=== PATIENT | female | born 1955 ===

== ENCOUNTER → 2022-08-17 | Outpatient (CLI) | payer MEDICARE ==
[2022-08-17 20:01] LABS: Uric Acid, Blood 3.8 mg/dL (2.6-6.0)
[2022-08-17 20:03] LABS: Alanine Aminotransfer (ALT/SGP 31 U/L (12-78); Albumin, Blood 4.4 g/dL (3.4-5.0); Albumin/Globulin Ratio 1.4 (0.8-1.8); Alk Phos 24 U/L (50-136); Anion Gap 2 mmol/L (6-16); Aspartate Aminotrans (AST/SGOT 21 U/L (12-37); Bilirubin, Total 1.2 mg/dL (0.1-1.0); Blood Urea Nitrogen 13 mg/dL (8-24); Bun/Creatinine Ratio 19.3 (12.0-20.0); CO2, Blood 29 mmol/L (21-32); Calcium, Blood 9.6 mg/dL (8.5-10.1); Chloride, Blood 106 mmol/L (98-108); Cholesterol 296 mg/dL (50-200); Creatinine, Blood 0.68 mg/dL (0.40-1.00); Globulin, Blood 3.1 g/dL (2.2-4.0); Glomerular Filtration Rate 97 (60-); Glucose, Blood 104 mg/dL (70-99); HDL Cholesterol 98 mg/dL (>39); LDL/HDL RATIO 1.9; Low Density Lipoprotein Chol 188 mg/dL (0-110); Potassium, Blood 4.3 mmol/L (3.5-5.5); Sodium, Blood 137 mmol/L (136-145); Total Protein, Blood 7.5 g/dL (6.4-8.2); Triglycerides 52 mg/dL (30-160); Very Low Density Lipoprot Chol 10 mg/dL (6-32)
== END | disposition home or self-care (01) ==
LOC: LAB 18:17 → LAB SHORT 18:17
PROVIDERS: Family Medicine
DX: E78.5 Hyperlipidemia, unspecified (principal); Z79.899 Other long term (current) drug therapy
CPT/HCPCS: 80053; 80061; 84550

== ENCOUNTER → 2023-12-14 | Outpatient (CLI) | payer MEDICARE ==
[2023-12-14 20:06] LABS: BASOPHILS ABSOLUTE AUTO 0.03 K/mm3 (0.00-0.23); BASOPHILS PERCENT AUTO 1 % (0-2); EOSINOPHILS ABSOLUTE AUTO 0.08 K/mm3 (0.00-0.68); EOSINOPHILS PERCENT AUTO 2 % (0-6); Hemoglobin 15.9 g/dL (11.5-16.0); IMMATURE GRAN ABSOLUTE AUTO 0.01 K/mm3 (0.00-0.10); IMMATURE GRAN PERCENT AUTO 0 % (0-1); LYMPHOCYTES ABSOLUTE AUTO 1.58 K/mm3 (0.84-5.20); LYMPHOCYTES PERCENT AUTO 32 % (21-46); MONOCYTES ABSOLUTE AUTO 0.26 K/mm3 (0.16-1.47); MONOCYTES PERCENT AUTO 5 % (4-13); Mean Corpuscular HGB 31.4 pg (26.0-34.0); Mean Corpuscular HGB Conc 34.6 g/dL (31.5-36.5); Mean Corpuscular Volume 91 fL (80-100); Mean Platelet Volume 9.5 fL (9.1-12.4); NEUTROPHILS ABSOLUTE AUTO 2.92 K/mm3 (1.96-9.15); NEUTROPHILS PERCENT AUTO 60 % (41-73); Platelet Count 273 K/mm3 (150-400); RDW Coefficient Variation 12.1 % (11.7-14.2); RDW Standard Deviation 40.3 fL (35.1-46.3); Red Blood Cell Count 5.06 M/mm3 (3.80-5.20); White Blood Cell Count 4.88 K/mm3 (4.00-11.30)
[2023-12-14 20:35] LABS: Alanine Aminotransfer (ALT/SGP 23 U/L (12-78); Albumin, Blood 4.7 g/dL (3.4-5.0); Albumin/Globulin Ratio 1.5 (0.8-1.8); Alk Phos 32 U/L (50-136); Anion Gap 11 mmol/L (3-11); Aspartate Aminotrans (AST/SGOT 25 U/L (12-37); Bilirubin, Total 1.9 mg/dL (0.1-1.0); Blood Urea Nitrogen 10 mg/dL (8-24); Bun/Creatinine Ratio 16.6 (12.0-20.0); C-REACTIVE PROTEIN, EXT RANGE <0.290 mg/dL (0.000-0.300); CHOL/HDL RATIO 2.6; CO2, Blood 27 mmol/L (21-32); Calcium, Blood 9.3 mg/dL (8.5-10.1); Chloride, Blood 100 mmol/L (98-108); Cholesterol 304 mg/dL (50-200); Globulin, Blood 3.2 g/dL (2.2-4.0); Glomerular Filtration Rate 98 (60-); Glucose, Blood 90 mg/dL (70-99); HDL Cholesterol 115 mg/dL (>39); LDL/HDL RATIO 1.5; Low Density Lipoprotein Chol 178 mg/dL (0-110); Potassium, Blood 3.6 mmol/L (3.5-5.5); Sodium, Blood 134 mmol/L (136-145); Total Protein, Blood 7.9 g/dL (6.4-8.2); Triglycerides 56 mg/dL (30-160); Very Low Density Lipoprot Chol 11 mg/dL (6-32)
[2023-12-17 13:43] LABS: ANTI-NUCLEAR AB ANA,IGG ELISA None Detected (None Detected)
== END | disposition home or self-care (01) ==
LOC: LAB 18:37 → LAB SHORT 18:37
PROVIDERS: Family Medicine
DX: M19.90 Unspecified osteoarthritis, unspecified site (principal); E78.00 Pure hypercholesterolemia, unspecified; I10 Essential (primary) hypertension; E55.9 Vitamin D deficiency, unspecified; E53.8 Deficiency of other specified B group vitamins; R73.9 Hyperglycemia, unspecified
CPT/HCPCS: 80053; 80061; 82306; 82607; 82746; 83036; 85025; 85651; 86038; 86140; 86430